=== PATIENT | male | born 1960 | race Caucasian/White ===

== ENCOUNTER 2020-10-25 09:29 | Observation (INO) | payer OTHER ==
[~2020-10-25] VITALS: Ht 172.7 cm; Wt 89.6 kg
[2020-10-25] MEDS ORDERED: AMOCLA875 PO (09:54)
[2020-10-25] MEDS ORDERED: AMOX250CH PO (09:54)
[2020-10-25] MEDS ORDERED: SPIR25 (09:55)
[2020-10-25] MEDS ORDERED: FURO20 (09:55)
[2020-10-25] MEDS ORDERED: PANT40 PO ×2 (09:55→13:30)
[2020-10-25] MEDS ORDERED: CIPR500 PO (09:55)
[2020-10-25 10:20] LABS: Chloride (POC) 91 mmol/L (98-108); Creatinine (POC) 0.9 mg/dL (0.8-1.3); Glucose (ISTAT POC) 47 mg/dL (70-99); Hemoglobin (POC) 7.8 g/dL (13.5-17.5); Potassium (POC) 4.6 mmol/L (3.5-5.5); Sodium (POC) 122 mmol/L (135-148); Total CO2 (POC) 17 mmol/L (21-32)
[2020-10-25 10:21] LABS: BASOPHILS ABSOLUTE AUTO 0.01 K/mm3 (0.00-0.23); BASOPHILS PERCENT AUTO 0 % (0-2); EOSINOPHILS ABSOLUTE AUTO 0.02 K/mm3 (0.00-0.68); EOSINOPHILS PERCENT AUTO 0 % (0-6); Hematocrit 22.8 % (37.0-53.0); Hemoglobin 7.1 g/dL (13.5-17.5); IMMATURE GRAN ABSOLUTE AUTO 0.24 K/mm3 (0.00-0.10); IMMATURE GRAN PERCENT AUTO 2 % (0-1); LYMPHOCYTES ABSOLUTE AUTO 0.81 K/mm3 (0.84-5.20); LYMPHOCYTES PERCENT AUTO 5 % (21-46); MONOCYTES ABSOLUTE AUTO 0.88 K/mm3 (0.16-1.47); MONOCYTES PERCENT AUTO 6 % (4-13); Mean Corpuscular HGB 32.1 pg (26.0-34.0); Mean Corpuscular HGB Conc 31.1 g/dL (31.5-36.5); Mean Corpuscular Volume 103 fL (80-100); Mean Platelet Volume 9.1 fL (9.1-12.4); NEUTROPHILS ABSOLUTE AUTO 13.81 K/mm3 (1.96-9.15); NEUTROPHILS PERCENT AUTO 88 % (41-73); Platelet Count 180 K/mm3 (150-400); RDW Coefficient Variation 21.2 % (11.7-14.2); RDW Standard Deviation 72.5 fL (35.1-46.3); Red Blood Cell Count 2.21 M/mm3 (4.30-5.90); White Blood Cell Count 15.77 K/mm3 (4.00-11.30)
[2020-10-25 10:42] LABS: International Normalized Ratio 2.34; Prothrombin Time Results 23.9 Sec (9.7-11.5)
[2020-10-25 10:57] LABS: Source, Urine Catheter
[2020-10-25 11:01] LABS: Ethanol (Alcohol), Blood, Med <3 mg/dL
[2020-10-25 11:14] LABS: Appearance, Urine Hazy (Clear); Blood, Urine 2+ (Neg); Color, Urine Amber (P-Yellow); Glucose Qualitative, Urine Neg (Neg); Ketones, Urine 2+ (Neg); Leukocyte Esterase, Urine 1+ (Neg); Nitrite, Urine Neg (Neg); Protein, Urine 2+ (Neg); Urobilinogen, Urine 4+ (Normal)
[2020-10-25 11:20] LABS: Acetaminophen, Random <2.0 ug/mL (10.0-30.0); Alanine Aminotransfer (ALT/SGP 55 U/L (12-78); Albumin, Blood 2.1 g/dL (3.4-5.0); Albumin/Globulin Ratio 0.6 (0.8-1.8); Alk Phos 89 U/L (50-136); Anion Gap 16 mmol/L (6-16); Aspartate Aminotrans (AST/SGOT 268 U/L (12-37); Bilirubin, Total 17.6 mg/dL (0.1-1.0); Blood Urea Nitrogen 27 mg/dL (8-24); Bun/Creatinine Ratio 32.7 (12.0-20.0); CO2, Blood 17 mmol/L (21-32); CPK Creatine Kinase 2598 U/L (39-308); Calcium, Blood 8.9 mg/dL (8.5-10.1); Chloride, Blood 92 mmol/L (98-108); Creatinine, Blood 0.83 mg/dL (0.60-1.20); Globulin, Blood 3.3 g/dL (2.2-4.0); Glomerular Filtration Rate >60 (60-); Glucose, Blood 49 mg/dL (70-99); Potassium, Blood 4.7 mmol/L (3.5-5.5); Sodium, Blood 125 mmol/L (136-145); Total Protein, Blood 5.4 g/dL (6.4-8.2)
[2020-10-25 11:33] LABS: Creatine Kinase MB 59.7 ng/mL (0.0-3.6); Creatine Kinase MB Index 2.3 (0.0-4.0)
[2020-10-25 11:46] LABS: Bacteria Few /hpf; Bilirubin, Urine 3+ (Neg); Squamous Epithelial Cells Few /hpf (Few)
[2020-10-25 11:47] LABS: Amorphous Light (0-Heavy)
[2020-10-25 11:54] LABS: U Amphetamine Screen DETECTED; U Barbituate Screen Not Detected; U Benzodiazapine Screen Not Detected; U Buprenorphine Screen Not Detected; U Cannabinoids Screen Not Detected; U Cocaine Screen Not Detected; U Methadone Screen Not Detected; U Methamphetamine Screen DETECTED; U Opiates Screen Not Detected; U Oxycodone Screen Not Detected; U Phencyclidine Screen Not Detected; U Propoxyphene Screen Not Detected
[2020-10-25 11:59] LABS: Influenza A, PCR Negative (NEGATIVE); Influenza B, PCR Negative (NEGATIVE); Resp Syncytial Virus, PCR Negative (NEGATIVE); SARS-Cov-2 (COVID-19) PCR, MMC Negative (NEGATIVE)
[2020-10-25] MEDS ORDERED: Potassium Chlo20 ME1 PO (13:29)
[2020-10-25] MEDS ORDERED: ALDACTONE100 MG PO (13:29)
[2020-10-25] MEDS ORDERED: TORSE20 PO (13:29)
[2020-10-25] MEDS ORDERED: MAG6464 MG PO (13:29)
[2020-10-25 13:38] LABS: PO2 Arterial 93.4 mmHg (80-100); pH Blood Arterial 7.44 (7.35-7.45)
[2020-10-25 14:00] LABS: Percent Saturation 90.7 % (20.0-50.0)
[2020-10-25 15:29] LABS: Hematocrit 20.5 % (37.0-53.0); Hemoglobin 6.2 g/dL (13.5-17.5)
--- NOTE | 2020-10-25 17:28 | NUR ---
ARRIVES TO FLOOR ABOUT 1630. RECEIVED ATIVAN PRIOR TO ARRIVAL. SNORING . HX OF LIVING IN [place] AND WAS TRAVELLING TO [facility] IN [place]. FOUND DOWN BY vocaltap OUT IN RAIN. UNSURE HOW LONG DOWN. WAS A MISSING PERSONS FROM [place]. SISTER WAS CONTACTED AND [facility] AND WOULD LIKE TO SOMEHOW GET HIM UP TO [place]. HX; LIVER FAILURE, RHABDO, METH AND AMPHETAMINE POSITIVE, ANEMIA. IN E.R. RECEIVED ; IV FLUIDS, RBC AND FFP, TEMP FRIEDMAN, WARMED FLUID. UNABLE TO ANSWER ANY QUESTIONS AT THIS TIME. JAUNDICE. ANASARCA. MULTIPLE BRUISING BUE. SWELLING SCROTUM AND BLE. FRIEDMAN DRAINING DARK TO BURGUNDY COLORED URINE. IV'S X 3. ON R.A. NO TELE. WCTM.
--- NOTE | 2020-10-25 22:24 | NUR ---
PATIENT ON COMFORT CARE. NON-VERBAL AND BEDREST. SLEEPING/SNORING AT THIS TIME. SISTER CALLED FROM [place], [place] AND LEFT PHONE # ON WHITE BOARD. AVAILABLE 14/05. FRIEDMAN PATENT AND DRAINING TO GRAVITY.
--- NOTE | 2020-10-26 04:35 | NUR ---
SHIFT SUMMARY PATIENT ON COMFORT CARE. BEDREST, NPO, AND NON-VERBAL. MOANING WITH REPOSITIONING T/O SHIFT. FRIEDMAN PATENT AND DRAINING TO GRAVITY. ON ROOM AIR. PIVS REMAIN INTACT. IV ATIVAN 1 MG GIVEN X TWO FOR COMFORT/ANXIETY AND ROXANOL 10 MG GIVEN X TWO FOR S/SX OF PAIN. SISTER CALLED X TWO FROM [facility] AND REPORTS SHE WILL DRIVE DOWN IN AM. ORAL CARE PROVIDED. CALL LIGHT IN REACH. BED IN LOWEST POSITION AND ALARM ACTIVATED. WILL CONTINUE TO MONITOR UNTIL DAY SHIFT NURSE ASSUMES CARE.
--- NOTE | 2020-10-26 10:33 | NUR ---
UPDATED SISTER, CAMILLA, ON CONDITION. STS PATIENT HAS; LIVER FAILURE AND PANCREATIC CANCER. STS LIVES WITH ADULT FEMALE . NEITHER GIRLFRIEND OR SISTER COMING DOWN. SISTERS NUMBER IS [phone].
--- NOTE | 2020-10-26 12:22 | NUR ---
GT BRANTLEY AWARE SISTER NOT COMING . STS WILL TALK TO PALLIATIVE AND THEN SISTER.
--- NOTE | 2020-10-26 14:46 | NUR ---
HAS BEEN SLEEPING MOST OF SHIFT. DOES NOT APPEAR UNCOMFORABLE OR IN ANY PAIN. NO GRIMACING OR MOANING OR FURROWED BROW. FRIEDMAN PATENT AND PUTTING OUT VIJAYA TO BURGUNDY COLOR URINE. TURNED Q 2 HOURS. WCTM
--- NOTE | 2020-10-26 15:00 | NUR ---
Comfort care visit, twice today. Pt sound asleep and did not wake to voice or touch both times. Resp even and unlabored. Deep jaundice color and dk brown/orange urine noted in bryant cath drainage bag noted. Case conferenced with RN regarding s/s and medications. Case conferenced with Ksenia GRANADOS, re: d/c planning options. Ksenia to be in touch with sister to discuss. Family is not planning to visit in person but have been available by phone.
--- NOTE | 2020-10-26 15:35 | NUR ---
RECEIVED MEDS FOR EXCESSIVE SECRETIONS. ATROPINE AND SCOPALOMINE FROM DR. MORRIS
--- NOTE | 2020-10-26 17:24 | NUR ---
Spiritual care note: No family present and pt is non-responsive. Breaths even, skin jaundiced. He appears comfortable and well cared-for by nursing. Silent prayer for peace provided. I will remain available.
--- NOTE | 2020-10-26 17:36 | NUR ---
UPDATED SISTER, CAMILLA ON CONDITION. NO CHANGES. SISTER GAVE ME NAME AND PHONE NUMBER OF HOSPICE CONTACT. [facility] WITH CONTACT OF RAZIA AT [phone]. LEFT VOICE MESSAGES ON; MITCH RAMOS AND GT TORIBIO.
--- NOTE | 2020-10-27 05:52 | NUR ---
TEST AND TURN UP TECHNICIAN SUMMARY PT ON COMFORT CARE MEASURES. PT SLEPT MOST OF SHIFT. NO SIGNS OF PAIN NOTED. NO FACIAL GRIMACE OR MOANING NOTED. PT CALM, COMFORTABLE AND RESTED IN BED T/O SHIFT. PT GIVEN ATROPINE SULFATE PRN FOR SECRETIONS THIS SHIFT. FRIEDMAN CATH PATENT AND DRAINING VIJAYA COLORED URINE. BED AT LOWEST POSITION, CALL LIGHT WITHIN REACH.
--- NOTE | 2020-10-27 17:13 | NUR ---
PAL CARE COMFORT CARE VISIT - Pt appears uncomfortable and is moaning. He remains unresponsive to voice or touch. RR 30/min and not always even or unlabored. Urine in bryant drainage bag remains kimberli and skin jaundiced. Pt does not appear to have wakeful periods. Reviewed assessment with RN and discussed s/s management with RN. Plan daily visits for comfort care.
--- NOTE | 2020-10-27 17:37 | NUR ---
PATIENT HAS BEEN NON-RESPONSIVE TO STAFF THIS SHIFT. DOES NOT SHOWS SIGNS OF PAIN HOWEVER RR HAS BECOME MORE RAPID AND LABORED; MEDICATED WITH MSIR TO ASSIST WITH RESPIRATIONS. COMFORT CARE PROTOCOLS IN PLACED AND FOLLOWED. Q 2HR TURNS. FRIEDMAN IN PLACE AND DRAINING TO GRAVITY. DARK URINE NOTED, APPEARS BILI-URINE.IV ACCESS DISCONTINUED X's THREE TO L ARM; ALL IV's BAD. PATIENT CONTINUES TO REST IN ROOM. CONTINUED MONITORING OF PATIENT PER PROTOCOL AND PRN.
--- NOTE | 2020-10-28 05:49 | NUR ---
SHIFT SUMMARY PT IS A 60 Y/O MALE, COMFORT CARE. HE IS CURRENTLY UNRESPONSIVE TO VOICE OR PAIN. PT WAS MEDICATED ONCE DURING THE NIGHT FOR AIR HUNGER WITH PRN ROXANOL, BUT OTHERWISE APPEARS COMFORTABLE. NO S/S OF PAIN OR ACUTE DISTRESS. NO ACUTE CHANGES IN PT CONDITION NOTED DURING THE NIGHT. APPROXIMATELY 2330, THIS RN SPOKE TO A WOMAN WHO IDENTIFIED HERSELF PT'S SISTER ELE. SHE WAS GIVEN AN UPDATE ON PT'S STATUS, AND REQUESTED THAT STAFF SEND HER "A PICTURE OF MY BROTHER". AFTER SPEAKING WITH CHARGE NURSE AND NURSING HEMODIALYSIS PATIENT CARE SPECIALIST, IT WAS DECIDED TO PASS THE REQUEST ON FOR PALLIATIVE CARE OR CASE MANAGEMENT, IN ORDER TO PRESERVE PT'S HIPPA RIGHTS. PT'S SISTER WAS ABLE TO SPEAK TO HIM ON THE PHONE HELD UP TO HIS EAR.
--- NOTE | 2020-10-28 14:17 | NUR ---
Pt resting in bed with his eyes closed. Pt is non responsive, respirations 8/min. Pt appears comfortable with no S/S of distress at this time. Pt appears imminent. Spoke with Bedside GIOVANNY Funk and discussed case. Palliative Care will remain available.
--- NOTE | 2020-10-28 16:42 | NUR ---
SHIFT SUMMARY PATIENT NON-RESPONSIVE EXPECT TO PHYSICAL STIMULI. PATIENT FLOATED ON PILLOWS, REPOSITION Q2. WEEPING EDEMA ON ARMS, AIR CHUCKS IN PLACE. PATIENT RESTING QUIETLY, NO SIGNS OF DISTRESS.
--- NOTE | 2020-10-29 01:58 | NUR ---
ASSUMED CARE OF THE PATIENT. UNRESPONSIVE WHEN NAME IS CALLED. BREATHING IS RATTLING MOIST. APPEARS TO BE COMFORTABLE AT THIS TIME. WILL CONTINUE TO MONITOR.
--- NOTE | 2020-10-29 03:27 | NUR ---
ELLIOTT BALTAZAR COVERING FOR LUNCH BREAK, CALLED AND REPORTED THAT THE PATIENT HAD PASSED AT 0315. VERIFIED WITH HIM. CHARGE NURSE WAS INFORMED. ATTEMPTED TO CALL THE DAUGHTER BUT PHONE MUST BE OFF THE HOOK IT HAS A BUSY SOUND. WILL INFORM MD OF .
--- NOTE | 2020-10-29 04:26 | NUR ---
ATTEMPTED TO CONTACT THE DAUGHTER 4 TIMES, UNABLE TO LEAVE MESSAGE HER MAILBOX IS FULL. CALLED AND INFORMED OF TIME OF . REMOVED CATHTER, NO OTHER LINES NOTED. REMOVED ALL PILLOWS AND LAID FLAT. LEAF SIGN ON THE DOOR.
--- NOTE | 2020-10-29 06:45 | NUR ---
AWAITING DONOR LINE TO RELEASE THE PATIENT. ICE WAS PLACED ON EYES JUST IN CASE THEY DO WANT THEM. CHARGE REPORTS HE WILL BE RELEASED TO [facility]. ATTEMPTED AGAIN TO CALL THE DAUGHTER WITH NO ANSWER. WILL PASS ONTO DAYSHIFT.
--- NOTE | 2020-10-29 07:23 | NUR ---
SPOKE WITH SISTER CALL TO [facility] TO INFORM PATIENT AND PROGRAM MANAGEMENT MANAGER HOME SELECTED WHEN SHE COULD NOT BE REACHED. PATIENT'S BODY TRANSPORTED TO [facility].
== END 2020-10-29 03:15 ==
LOC: ER 09:29 → MEDS 09:30 → ER 16:27 → MEDS 16:28 → ER 16:28 → MEDS 16:28
PROVIDERS: Nurse Practitioner Acute Care; Physician Assistant; ADMIT Internal Medicine
DX: A41.9 Sepsis, unspecified organism (principal); R65.21 Severe sepsis with septic shock; C25.9 Malignant neoplasm of pancreas, unspecified; K74.60 Unspecified cirrhosis of liver; K92.2 Gastrointestinal hemorrhage, unspecified; M62.82 Rhabdomyolysis; F15.10 Other stimulant abuse, uncomplicated; I21.4 Non-ST elevation (NSTEMI) myocardial infarction; T68.XXXA Hypothermia, initial encounter; D64.9 Anemia, unspecified; E16.2 Hypoglycemia, unspecified; Z79.899 Other long term (current) drug therapy; Z20.822 Contact with and (suspected) exposure to COVID-19; Z66 Do not resuscitate; Z51.5 Encounter for palliative care
CPT/HCPCS: 0241U; 36415; 36430; 36600; 51702; 70450; 71045; 76705; 80047; 80053; 81001; 82010; 82140; 82550; 82553; 82607; 82728; 82746; 82803; 82947; 83540; 83550; 83605; 83721; 83735; 83880; 84484; 85014; 85018; 85025; 85610; 85730; 86850; 86900; 86901; 86920; 87040; 87086; 90471; 90714; 93005; 93010; 96365-59; 96366-59; 96367-59; 96368; 96375-59; 96376; 96376-59; 99285-25; A9270; C8929; C9113; G0378; G0480; J0696; J1940; J2060; J2354; J2543; J3010; J3370; J3411; J3475; J7030; J7042; J7050; J7060; J7120; P9016; P9059; Q9957